=== PATIENT | female | born 1975 | race African-American/Black ===

== ENCOUNTER → 2017-02-19 | Emergency (ER) | payer SELFPAY ==
[~2017-02-19] MED LIST: LEVOFLOXACIN 250 MG TABLET (FP) ONE; LEVOFLOXACIN 500 MG TABLET (FP) ONE; LEVOFLOXACIN 750 MG TABLET PO ONE; metroNIDAZOLE 250 MG TABLET ONE; metroNIDAZOLE 500 MG TABLET PO ONE
[2017-02-19 14:14] VITALS: BMI 34.9
--- NOTE | 2017-02-19 15:57 | PDOC ---
History of Present Illness - General Chief Complaint: Pain Stated Complaint: ABD PAIN Time Seen by Provider: 02/19/17 15:57 History Source: Patient Exam Limitations: No Limitations - History of Present Illness Initial Comments: 02/19/17 15:57 CHIEF COMPLAINT: Diarrhea HISTORY OF PRESENT ILLNESS: This is an otherwise healthy 41-year-old female who presents for evaluation of diarrhea. She started having lower abdominal cramping and multiple episodes of diarrhea on Sunday. She initially attributed the symptoms to eating a fast food hamburger on the same day that symptoms started. Diarrhea continued throughout the weekend. On Sunday, she noted a temp of 102. Diarrhea also became green at that time. She denies nausea/vomiting , rectal bleeding, dysuria, or any other symptoms. She denies recent antibiotic use, hospitalization, and travel. Vital signs on arrival are notable for mildly elevated BP of 150/84. REVIEW OF SYSTEMS: GENERAL/CONSTITUTIONAL: Fever on Sunday. No weakness. No weight change. HEAD, EYES, EARS, NOSE AND THROAT: No change in vision. No ear pain or discharge. No sore throat. CARDIOVASCULAR: No chest pain or palpitations. RESPIRATORY: No cough, wheezing, or shortness of breath. GASTROINTESTINAL: See HPI. GENITOURINARY: No dysuria, frequency, or change in urination. MUSCULOSKELETAL: No joint or muscle swelling or pain. No neck or back pain. SKIN: No rash or easy bruising. NEUROLOGIC: No headache, vertigo, loss of consciousness, or loss of sensation. PSYCHIATRIC: No depression or anxiety. ENDOCRINE: No increased thirst. No abnormal weight change. HEMATOLOGIC/LYMPHATIC: No anemia, easy bleeding, or history of blood clots. ALLERGIC/IMMUNOLOGIC: No hives or skin allergy. No latex allergy. PHYSICAL EXAM: GENERAL: The patient is awake, alert, and fully oriented, in no acute distress. HEAD: Normal with no signs of trauma. ENT: Pupils equal, round and reactive to light, extraocular movements intact, sclera anicteric, conjunctiva clear. Neck supple. LUNGS: Clear to auscultation bilaterally. Normal excursion. No respiratory distress or use of accessory muscles. CV: RRR, S1/S2, no MRG. Cap refill < 2 sec. ABDOMEN: Soft, non-distended, mild lower abdominal tenderness bilaterally. EXTREMITIES: Normal range of motion, no edema. NEUROLOGICAL: Normal speech, normal gait. CN II-XII grossly intact. PSYCH: Normal mood, normal affect. SKIN: Warm, dry, normal turgor, no rashes or lesions noted. Past History - Past Medical History Allergies/Adverse Reactions: Allergies Allergy/AdvReac Type Severity Reaction Status Date / Time No Known Allergies Allergy Verified 02/19/17 14:14 Home Medications: Ambulatory Orders Levofloxacin [Levaquin] 750 mg PO DAILY #7 tablet 02/19/17 Metronidazole [Flagyl -] 500 mg PO Q6H #28 tablet 02/19/17 - Psycho/Social/Smoking Cessation Hx Suicidal Ideation: No Smoking History: Current every day smoker Number of Cigarettes Smoked Daily: 2 Information on smoking cessation initiated: Yes 'Breaking Loose' booklet given: 02/19/17 Hx Alcohol Use: No Drug/Substance Use Hx: No Substance Use Type: None *Physical Exam - Vital Signs Last Vital Signs Temp Pulse Resp BP Pulse Ox 97.6 F 77 18 150/84 100 02/19/17 14:12 02/19/17 14:12 02/19/17 14:12 02/19/17 14:12 02/19/17 14:12 Medical Decision Making - Medical Decision Making 02/19/17 20:01 A/P: 41 year old female with lower abdominal cramping, diarrhea, and fever. Differential includes colitis including c diff, diverticulitis, gastroenteritis. 1. Patient refuses lab work and IV. I explained to her that this is needed for diagnosis but she states that her fear of needles is overwhelming. 2. Will obtain stool studies including stool culture and c diff 3. Will obtain CTAP without contrast - patient understands that this is sub- optimal Within the limitations of the non-contrast study, CTAP shows diffuse thickening and irregularity of the colon consistent with colitis. The terminal ileum may be involved and Crohn's is a consideration. UA with 2+ leukesterase and positive nitrites. Findings and need for followup discussed with the patient. She states she "will not stay in the hospital no matter what." Will treat with Levaquin/Flagyl; have advised prompt GI followup. Return precautions reviewed. *DC/Admit/Observation/Transfer Diagnosis at time of Disposition: Colitis - Discharge Dispostion Disposition: HOME Admit: No - Prescriptions Prescriptions: Metronidazole [Flagyl -] 500 mg PO Q6H #28 tablet Levofloxacin [Levaquin] 750 mg PO DAILY #7 tablet - Referrals Referrals: Fabien Amaro MD [Staff Physician] - - Patient Instructions Printed Discharge Instructions: DI for Crohn's Disease, DI for Colitis Additional Instructions: -Your CT scan today shows colitis throughout the entire colon. This may be due to infection or it could be from inflammation, including Crohn's disease. It is not possible to make a precise diagnosis without further testing, which you have refused. -Take antibiotics as prescribed -It is very important that you follow up with a data modeler for further evaluation (referral enclosed) -Call [phone] in 2-3 days for results of your stool studies -Return here for blood in the stool, worsening abdominal pain, or any other concerning symptoms - Post Discharge Activity Work/School Note: Back to Work
[2017-02-19 18:49] LABS: URINE APPEARANCE CLOUDY; URINE BILIRUBIN NEGATIVE (NEGATIVE); URINE COLOR YELLOW; URINE GLUCOSE (UA) NEGATIVE (NEGATIVE); URINE KETONE 1+ (NEGATIVE); URINE NITRITE POSITIVE (NEGATIVE); URINE PROTEIN NEGATIVE (NEGATIVE); URINE UROBILINOGEN NEGATIVE E.U./dl (0.2-1.0)
[2017-02-19 18:59] LABS: URINE BLOOD 1+ (NEGATIVE); URINE LEUK ESTERASE 2+ (NEGATIVE)
[2017-02-19 19:00] LABS: URINE BACTERIA RARE /hpf (NONE SEEN); URINE MUCUS RARE; URINE RBC 4 /hpf (0-3); URINE WBC 16 /hpf (3-5)
[2017-02-19 20:36] VITALS: BP 120/78; PULSE 78; TEMP 98
--- NOTE | 2017-02-22 20:34 | PDOC ---
Patient Follow-up (Call Back) - Post ED Follow - Up Disposition at time of original discharge: HOME Reason for Call Back: Abnwl. Microbiology (received call from lab pt. has campylobacter, pt. was called to inform her, she feels better, much less abdominal cramping, continues to have green diarrhea, she is able to eat light fluids. She tried to get appt. with GI, she does not have insurance, she will try to make appt at [facility] [phone]. Pt. instructed to return ER if symptoms worsen.)
== END | disposition home or self-care (01) ==
LOC: JER 14:09
DX: K52.9 Noninfective gastroenteritis and colitis, unspecified (principal)
CPT/HCPCS: 74176-TC; 81003; 81015; 84703; 87045; 87046; 87177; 87205; 87209; 87324; 87328; 87329; 87449; 99283-25

== ENCOUNTER 2018-12-10 14:46 | Emergency (ER) | payer OTHER ==
[2018-12-10 15:05] VITALS: BP 115/80; PULSE 88; TEMP 97.9; BMI 34.2
--- NOTE | 2018-12-10 15:34 | PDOC ---
History of Present Illness - General Chief Complaint: Injury Stated Complaint: FOOT INJURY Time Seen by Provider: 12/10/18 15:19 - History of Present Illness Initial Comments: 12/10/18 15:32 -year-old female with a past medical history significant for right knee arthritis, she takes Naprosyn presents for evaluation of right great toe pain and right MTPJ pain after heavy object fell on her foot yesterday at work. Past History - Past Medical History Allergies/Adverse Reactions: Allergies Allergy/AdvReac Type Severity Reaction Status Date / Time No Known Allergies Allergy Verified 12/10/18 15:03 Home Medications: Ambulatory Orders Naproxen [Naprosyn] 500 mg PO ASDIR 12/10/18 COPD: No - Suicide/Smoking/Psychosocial Hx Smoking History: Unknown if ever smoked Number of Cigarettes Smoked Daily: 2 'Breaking Loose' booklet given: 02/19/17 Hx Alcohol Use: No Drug/Substance Use Hx: No Substance Use Type: None Review of Systems - Review of Systems Musculoskeletal: Yes: Joint Pain *Physical Exam - Vital Signs Last Vital Signs Temp Pulse Resp BP Pulse Ox 97.9 F 88 18 115/80 98 12/10/18 15:03 12/10/18 15:03 12/10/18 15:03 12/10/18 15:03 12/10/18 15:03 - Physical Exam Comments: 12/10/18 15:33 Right great toe skin color and temperature are normal. The swelling at the first MTPJ. Tenderness diffusely. No gross sensorimotor deficits, she is neurovascularly intact. Limited range of motion at the MTPJ and IPJ. Moderate Sedation - Procedure Monitoring Vital Signs: Procedure Monitoring Vital Signs Temperature 97.9 F 12/10/18 15:03 Pulse Rate 88 12/10/18 15:03 Respiratory Rate 18 12/10/18 15:03 Blood Pressure 115/80 12/10/18 15:03 O2 Sat by Pulse Oximetry (%) 98 12/10/18 15:03 ED Treatment Course - RADIOLOGY Radiology Studies Ordered: Category Date Time Status TOE(S) RIGHT [RAD] Stat Radiology 12/10/18 15:25 Ordered Medical Decision Making - Medical Decision Making 12/10/18 15:48 R great toe contusion, No fx on raidograph, WBAT with hard sole shoe & crutches f/u with ortho *DC/Admit/Observation/Transfer Diagnosis at time of Disposition: Contusion of toe, right - Discharge Dispostion Disposition: HOME Condition at time of disposition: Stable Decision to Admit order: No - Referrals Referrals: Momo Garcia DO [Staff Physician] - - Patient Instructions Printed Discharge Instructions: Contusion Additional Instructions: There is no fracture today on radiograph. He may weight-bear as tolerated with the use of the hard sole shoe and crutches. Follow-up with orthopedic surgery in 1-2 days for further evaluation and treatment options. Continue with the Naprosyn for pain as directed. He may add Tylenol if needed as directed. Return to the emergency room for worsening symptoms. - Post Discharge Activity
== END 2018-12-10 16:12 | disposition home or self-care (01) ==
LOC: JERFT 14:46
DX: S90.111A Contusion of right great toe without damage to nail, initial encounter (principal); W22.8XXA Striking against or struck by other objects, initial encounter; Y93.89 Activity, other specified; Y92.69 Other specified industrial and construction area as the place of occurrence of the external cause; Y99.0 Civilian activity done for income or pay
CPT/HCPCS: 73660-TC-FY; 99281-25